=== PATIENT | female | born 1980 | race Caucasian/White ===

== ENCOUNTER → 2020-04-18 | Outpatient (CLI) | payer OTHER ==
[~2020-04-18] MED LIST: ALPR1 PO; CETI10 PO; CETI5 PO; COPAXONE; CYCL10; DICY20; DIPH50 PO; FLUC150A PO; FLUT.05NI; GABA300; HYDACE5; HYDACE5 PO; HYDMOR2 PO; IBUP600 PO; LAMO100 PO; LORA1 PO; MONT10T PO; NORT10 PO; OXYACE5T PO; PARO12.5; PRED20 PO; PROM25 PO; PROM50S; QUET100; QUET100 PO; RANI150; RXPHEN200 PO; SERT100; SERT50; SULTRIDS PO; SUMA25; [UNRECOGNIZED DRUG - OTHER]; [UNRECOGNIZED DRUG - OTHER]
== END ==
LOC: LAB SHORT 19:32 → LAB 19:32
DX: N39.0 Urinary tract infection, site not specified (principal)
CPT/HCPCS: 87086

== ENCOUNTER → 2021-04-12 | Outpatient (CLI) | payer OTHER | END | disposition home or self-care (01) | LOC: LAB SHORT 11:42 → LAB 11:42 | PROVIDERS: Family Medicine | DX: Z51.81 Encounter for therapeutic drug level monitoring (principal); Z79.899 Other long term (current) drug therapy | CPT/HCPCS: G0480 ==